=== PATIENT | male | born 1985 | race Caucasian/White ===

== ENCOUNTER 2017-06-02 17:44 | Emergency (ER) | payer SELFPAY | END 2017-06-02 18:18 | disposition home or self-care (01) | LOC: EDH 17:44 | DX: M70.22 Olecranon bursitis, left elbow (principal); I10 Essential (primary) hypertension; Z72.0 Tobacco use; Z88.6 Allergy status to analgesic agent; Z88.2 Allergy status to sulfonamides; Y93.89 Activity, other specified ==